=== PATIENT | female | born 2000 | race Caucasian/White ===

== ENCOUNTER 2019-04-18 16:46 | Inpatient (IN) | payer SELFPAY ==
[~2019-04-18] VITALS: Ht 175.3 cm; Wt 109.0 kg
[~2019-04-18 16:46] MED LIST: ACET500C5 PO; IBUP-1542 PO
[2019-04-18 18:08] VITALS: Ht 175.3 cm; Wt 109.0 kg
[2019-04-21 07:40] VITALS: BP 120/71; PULSE 100; RESP 18
== END 2019-04-21 13:50 | disposition home or self-care (01) | DRG 807 ==
LOC: L-D 16:46 → PP1 04-19 18:50
PROVIDERS: ADMIT Obstetrics & Gynecology; ATTEND Obstetrics & Gynecology
PROC: 10E0XZZ Delivery of Products of Conception, External Approach (ICD-10-PCS; principal; 2019-04-19)
DX: O80 Encounter for full-term uncomplicated delivery (principal); Z37.0 Single live birth; Z3A.39 39 weeks gestation of pregnancy
CPT/HCPCS: 62322; 76815; 85025; 85610; 85730; 86592; 86850; 86900; 86901; 86920; 87340; 90715; 90716; 99464; J0290; J0595; J2210; J2405; J2590; J3010; J7120

== ENCOUNTER 2019-04-22 15:37 | Emergency (ER) | payer SELFPAY ==
[~2019-04-22] VITALS: Ht 175.3 cm; Wt 101.4 kg
[2019-04-22 15:44] VITALS: BP 143/64; PULSE 91; RESP 17; Ht 175.3 cm; Wt 101.4 kg
--- NOTE | 2019-04-22 17:04 | ERD ---
ER Documentation Chief Complaint Chief Complaint VAGINAL PAIN/BLEEDING S/P EPISIORRHAPHY 3 DAYS AGO HPI Patient is a 19-year-old female, G1, P1, presents to the ER for concerns of vaginal pain after delivery. Patient states her [employer]EMARK A[employer]IX[employer] is Dr. Boaz Martinez. Patient reports vaginal delivery 3 days ago. Patient states she feels 1 of the sutures hanging out. Patient states she is bleeding however she is using approximately 2-3 pads per day. Patient denies any heavy bleeding. Patient denies any lightheadedness or dizziness. Patient denies any fevers, chills, dysuria, frequent, urgency or hematuria. Patient has not been taking any medication for pain. ROS All systems reviewed and are negative except as per history of present illness. Medications Home Meds Active Scripts Ibuprofen* (Motrin*) 600 Mg Tab, 600 MG PO Q6, #30 TAB Prov:RAQUEL BROWN PA-C 04/22/19 Acetaminophen* (Tylophen*) 500 Mg Capsule, 1 CAP PO Q6H PRN for PAIN AND OR ELEVATED TEMP, #20 CAP Prov:RAQUEL BROWN PA-C 04/22/19 Allergies Allergies: Coded Allergies: No Known Allergy (Unverified , 04/18/19) FmHx Family History: No diabetes Physical Exam Vitals Vital Signs Date Temp Pulse Resp B/P (MAP) Pulse Ox O2 O2 Flow FiO2 Time Delivery Rate 04/22/19 99.1 91 17 143/64 99 15:44 (90) Physical Exam GENERAL: Well-developed, well-nourished female. Appears in no acute distress. HEAD: Normocephalic, atraumatic. EYES: Pupils are equally reactive bilaterally. EOMs grossly intact. No conjunctival erythema. ENT: Moist mucous membranes. No uvula deviation. No kissing tonsils. NECK: Supple. No meningismus. Normal range of motion of the neck. LUNG: Clear to auscultation bilaterally. No rhonchi, wheezing, rales or coarse breath sounds. HEART: Regular rate and rhythm. No murmurs, rubs or gallops. FEMALE GENITALIA: Exam was completed with a on site soil evaluator present, RAEGAN Gonzalez. Small laceration noted to the inferior aspect of the perineum. Sutures are intact. No wound dehiscence. No active bleeding or discharge from the site. One long suture hanging out. Internal exam deferred as patient is status post vaginal delivery. EXTREMITIES: Equal pulses bilaterally. No peripheral clubbing, cyanosis or edema. No unilateral leg swelling. NEUROLOGIC: Alert and oriented. Moving all four extremities without any difficulty. Normal speech. Steady gait. SKIN: Normal color. Warm and dry. No rashes or lesions. Procedures/MDM MEDICAL DECISION MAKING: Patient is a 19-year-old female, G1, P1, presents the ER for concerns of vaginal pain after delivery.. Vital signs were reviewed. Patient is afebrile. Patient was not hypoxic. Patient was hemodynamically stable. Pelvic exam showed one long suture. Suture was trimmed down. Suture was not removed. Review of the patient's medical records show the patient did not undergo an episiotomy however she did have the perineum laceration. Physical exam findings are consistent with this history. Patient was advised that vaginal pain is common after delivery. This is patient's first child and va ginal delivery. Patient advised to take ibuprofen and Tylenol as needed for pain. Patient advised to apply ice to affected area to help with pain. Patient was encouraged to follow-up with her TRADEMARK A[employer]ER Dr. Martinez in the next 1 to 2 days. Low suspicion for wound dehiscence, deep space infection, cellulitis. Patient was nontoxic, [id number] prior to discharge. PRESCRIPTION: Tylenol, ibuprofen DISCHARGE: At this time, patient is stable for discharge and outpatient management. I have instructed the patient to follow-up with his/her primary care physician in 1-2 days. I have discussed with the patient the possibility of needing to see a specialist for further workup and imaging studies if symptoms persist. I have instructed the patient to promptly return to the ER for any new or worsening symptoms including increased pain, fever, nausea, vomiting, weakness or LOC. The patient and/or family expressed understanding of and agreement with this plan. All questions were answered. Home care instructions were provided. Disclaimer: Inadvertent spelling and grammatical errors are likely due to EHR/dictation software use and do not reflect on the overall quality of patient care. Also, please note that the electronic time recorded on this note does not necessarily reflect the actual time of the patient encounter. Departure Diagnosis: Primary Impression: Pain related to vaginal delivery Condition: Fair Patient Instructions: After a Vaginal Referrals: BOAZ MARTINEZ MD [facility] YOU HAVE RECEIVED A MEDICAL SCREENING EXAM AND THE RESULTS INDICATE THAT YOU DO NOT HAVE A CONDITION THAT REQUIRES URGENT TREATMENT IN THE EMERGENCY DEPARTMENT. FURTHER EVALUATION AND TREATMENT OF YOUR CONDITION CAN WAIT UNTIL YOU ARE SEEN IN YOUR DOCTORS OFFICE WITHIN THE NEXT 1-2 DAYS. IT IS YOUR RESPONSIBILITY TO MAKE AN APPOINTMENT FOR FOLOW-UP CARE. IF YOU HAVE A PRIMARY DOCTOR --you should call your primary doctor and schedule an appointment IF YOU DO NOT HAVE A PRIMARY DOCTOR YOU CAN CALL OUR PHYSICIAN REFERRAL HOTLINE AT IF YOU CAN NOT AFFORD TO SEE A PHYSICIAN YOU CAN CHOSE FROM THE FOLLOWING [facility] [address] [facility]. [facility] [address] [facility] [facility] [address] [facility] [facility] [address] [facility] [facility] [address] [facility] [facility] [address] [facility]. [facility] YOU HAVE RECEIVED A MEDICAL SCREENING EXAM AND THE RESULTS INDICATE THAT YOU DO NOT HAVE A CONDITION THAT REQUIRES URGENT TREATMENT IN THE EMERGENCY DEPARTMENT. FURTHER EVALUATION AND TREATMENT OF YOUR CONDITION CAN WAIT UNTIL YOU ARE SEEN IN YOUR DOCTORS OFFICE WITHIN THE NEXT 1-2 DAYS. IT IS YOUR RESPONSIBILITY TO MAKE AN APPOINTMENT FOR FOLOW-UP CARE. IF YOU HAVE A PRIMARY DOCTOR --you should call your primary doctor and schedule and appointment IF YOU DO NOT HAVE A PRIMARY DOCTOR YOU CAN CALL OUR PHYSICIAN REFERRAL HOTLINE AT . IF YOU CAN NOT AFFORD TO SEE A PHYSICIAN YOU CAN CHOSE FROM THE FOLLOWING [facility] INSTITUTIONS: [facility] [address] [place] [address] [facility] [address] [place] [address] [facility] + [facility] [address] [place] [address] Additional Instructions: Call Dr. Boaz Martinez TOMORROW for an appointment during the next 1-2 days.See the doctor sooner or return here if your condition worsens before your appointment time. RAQUEL BROWN PA-C Apr 22, 2019 17:04
== END 2019-04-22 17:14 | disposition home or self-care (01) ==
LOC: FTE 15:37
DX: O90.89 Other complications of the puerperium, not elsewhere classified (principal); R10.2 Pelvic and perineal pain
CPT/HCPCS: 99283